=== PATIENT | male | born 1955 | race Caucasian/White ===

== ENCOUNTER → 2019-08-11 | Outpatient (CLI) | payer OTHER | END | disposition home or self-care (01) | LOC: LABPAT 11:14 | PROVIDERS: ATTEND Orthopaedic Surgery | DX: Z01.812 Encounter for preprocedural laboratory examination (principal) | CPT/HCPCS: 87070 ==

== ENCOUNTER 2019-10-05 09:30 | Day surgery (SDC) | payer OTHER ==
[2019-09-30 15:21] VITALS: BMI 43.7
--- NOTE | 2019-10-04 09:33 | HP ---
HISTORY AND PHYSICAL CHIEF COMPLAINT: Left knee pain. HISTORY OF PRESENT ILLNESS: The patient is a 64-year-old male who presents with progressive left knee pain secondary to osteoarthrosis worsening over the past year. He has had previous injections and tried medications with only partial temporary relief. He notes he has pain that limits his normal function and activities. PAST MEDICAL HISTORY: Significant for obesity, prostate cancer, rectal polyps, hypertension. PAST SURGICAL HISTORY: Significant for bariatric surgery, colonoscopy with polyp resection, carpal tunnel release, spinal fusion and left knee arthroscopy. CURRENT MEDICATIONS: 1. Losartan. 2. [place]. 3. Atorvastatin. 4. Aspirin. 5. Ciprofloxacin. 6. Gabapentin. 7. Protonix. ALLERGIES: He denies drug allergies. FAMILY HISTORY: Significant for heart disease. SOCIAL HISTORY: Negative for current tobacco or alcohol use. REVIEW OF SYSTEMS: Sixteen-point review of systems otherwise reviewed and is noncontributory. PHYSICAL EXAMINATION: On examination, the patient is approximately 5 feet 10 inches, 310 pounds of endomorphic habitus. HEENT exam is nonfocal. Neck is supple. He has painless passive motion of his left hip. Straight leg raise is negative. Active motion left knee -12 to 115 degrees of flexion. He has a mild effusion. He is tender about the medial joint line. Collaterals are stable, Jordyn is negative, Robinson's is equivocal. He has genu varum alignment. His distal neurovascular exam appears intact in the left lower extremity. X-rays to include weightbearing notch lateral and Merchant views of the left knee obtained in the office show severe medial compartment narrowing. IMPRESSION: 1. Left knee severe medial compartment osteoarthrosis. 2. Obesity. RECOMMENDATIONS: I talked to the patient at length regarding his condition along with treatment options. At this point he is quite symptomatic because of pain related to his osteoarthrosis despite extensive conservative measures. After thorough discussion, he opts to proceed with surgery. We will plan to proceed with left total knee arthroplasty. Risks and benefits were discussed at length in layman's terms. We will institute DVT prophylaxis postoperatively. MMODL / ARLINN: [id number] /
[~2019-10-05 09:30] MED LIST: ACETAMINOPHEN TAB 500 MG TAB PO ONE; HYDROmorphone 0.5 MG/0.5 ML SYRINGE IVP PRN; LIDOCAINE 1% 20 ML VIAL (10MG/ML) FOR IV START INTRADERMA PRN; MELOXICAM 7.5 MG TAB PO ONE; ONDANSETRON 4 MG/2 ML VIAL IVP ONE; ROPIVACAINE 246.25 MG, EPINEPHrine 0.5 MG, KETOROLAC 30 MG, cloNIDine HCL/PF 80 MCG, WA... MISCELLANE ONE; TRANEXAMIC ACID 1,000 MG in SODIUM CHLORIDE 0.9% 100 ML IVPB ONE; ceFAZolin 3 GM in SODIUM CHLORIDE 0.9% 100 ML IVPB ONE
[2019-10-05] MEDS ORDERED: fentaNYL (PF) 50 MCG/ML 2 ML AMP IV ONE (10:27)
[2019-10-05] MEDS ORDERED: MIDAZOLAM 2 MG/2 ML VIAL IV ONE (10:27)
[2019-10-05] MEDS: LACTATED RINGERS 1,000 ML IV SCH (10:34)
[2019-10-05] MEDS ORDERED: DEXAMETHASONE SOD PHOS (MDV) 100 MG/10 ML VIAL IV ONE (10:40)
--- NOTE | 2019-10-05 10:41 | P.ANPRN ---
Procedure Note - Anesthesia - Nerve Block Performed Left Adductor Canal Single Time Out Performed: Yes (1026) Date of Procedure: 10/05/19 Procedure Start Time: : Procedure Stop Time: Location of Patient: PreOp Indication: Acute Post-Operative Pain, Requested by Surgeon Specifically requested for management of pain by DrDg: Rodrigo Ravi Sedation Type: Sedate with meaningful contact maintained Preparation: Sterile Prep Position: Supine Catheter: None Needle Types: Pajunk Needle Gauge: 20 Ultrasound used to visualize needle placement: Yes Ultrasound used to observe medication spread: Yes Injectate: 0.5% Ropivacaine (see comment for volume) (30cc) Blood Aspirated: No Pain Paresthesia on Injection Noted: No Resistance on Injection: Normal Image Stored and Saved: Yes Events: Uneventful and Well Tolerated
[2019-10-05] MEDS ORDERED: PROPOFOL 10 MG/ML 20 ML VIAL IV ONE (10:50)
[2019-10-05] MEDS ORDERED: SUCCINYLCHOLINE CHLORIDE 100 MG/5 ML SYR IV ONE (10:50)
[2019-10-05] MEDS ORDERED: MIDAZOLAM 2 MG/2 ML VIAL ONE (10:50)
[2019-10-05] MEDS ORDERED: ePHEDrine SULFATE/0.9% NACL/PF 50 MG/5 ML SYRINGE IV ONE (10:50)
[2019-10-05] MEDS ORDERED: fentaNYL (PF) 50 MCG/ML 2 ML AMP ONE (10:50)
[2019-10-05] MEDS ORDERED: ceFAZolin 3,000 MG in SODIUM CHLORIDE 0.9% IRRIGATIO 3,000 ML IRRIGATION ONE (11:47)
[2019-10-05] MEDS ORDERED: LACTATED RINGERS 1,000 ML IV ONE (12:30)
[2019-10-05] MEDS ORDERED: ACETAMINOPHEN TAB 325 MG TAB PO PRN (12:52)
[2019-10-05] MEDS ORDERED: ONDANSETRON 4 MG/2 ML VIAL IVP PRN (12:52)
[2019-10-05] MEDS ORDERED: NALOXONE 0.4 MG/ML 1 ML VIAL IV PRN (12:52)
[2019-10-05] MEDS ORDERED: traMADol 50 MG TAB PO PRN (12:52)
[2019-10-05] MEDS ORDERED: HYDROmorphone 1 MG/ML 1 ML SYRINGE IVP PRN (12:52)
[2019-10-05] MEDS ORDERED: HYDROmorphone 0.5 MG/0.5 ML SYRINGE IVP PRN (12:52)
[2019-10-05] MEDS ORDERED: HYDROcodone/APAP 10-325MG 1 EACH TAB PO PRN (12:52)
[2019-10-05] MEDS ORDERED: MAGNESIUM HYDROXIDE 2,400 MG/10 ML CUP PO PRN (12:52)
--- NOTE | 2019-10-05 13:16 | P.OP ---
Date of Procedure: 10/05/19 Preoperative Diagnosis: Left knee severe tricompartmental osteoarthrosis Postoperative Diagnosis: Same Procedure(s) Performed: Left total knee arthroplastycementedposterior stabilized Implants: Depuy Attune size 8 cemented femoral component, size 7 cemented tibial component, 9 mm articular surface, 38 mm cemented patellar component. I did place a 50 mm tibial stem. This is a posterior stabilized implant. [facility] Surgeon: Mike Thacker Desk Reporter #1: Kofi Inman Estimated Blood Loss (ml): 50 Pathology: other (Bone fragments) Condition: stable Disposition: PACU Indications for Procedure: The patient is a 64-year-old male who presents with progressive left knee pain secondary to osteoarthrosis despite conservative treatment. A discussion of the risks and benefits of operative intervention versus continued conservative measures was made with patient. He opted to proceed with surgery. Operative risks to include infection, neurovascular injury, development of blood clots, component loosening, fracture, component failure, and possible need for subsequent procedures was discussed. Informed consent was obtained. Operative Findings: As below Description of Procedure: The patient was brought to the operating room, and after induction of spinal anesthesia the left lower extremity was prepped and draped in a normal fashion. The tourniquet was inflated to 270 mm marker. A longitudinal incision extending 3 finger breaths above the superior pole of patella extending to the medial aspect the tibial tubercle was then made. The skin and subcutaneous tissues were divided sharply. Electrocautery was used for hemostasis. A medial parapatellar arthrotomy was performed. The medial soft tissues to include the superficial and deep portions of the medial collateral ligament were elevated subperiosteally. The patella was everted. A portion of the retropatellar fat pad was excised sharply. The anterior cruciate ligament was sacrificed. Blunt retractors were placed. A starting hole was made in the distal femur 1 cm anterior to the posterior cruciate ligament origin. An intramedullary femoral guide was then inserted planning on 5 valgus distal cut with 9 mm distal resection. The cutting block was pinned in place. The distal cut was then made. The posterior referencing sizing guide was utilized. I felt size 8 was most appropriate. 3 of external rotation was built into the system and verified off the trans-epicondylar axis and the posterior condyles. The cutting block was pinned in place. The anterior, posterior, and chamfer cuts then made. Bone fragments were removed. The intercondylar guide was placed and the notch cut was made with a sagittal saw. The bone block was removed in one fragment. The trial component was then placed. There is good anterior to posterior and medial to lateral fit. The distal peg holes were drilled. The trial component was removed. Attention was then paid towards preparing the proximal femur. An extra medullary guide was utilized in line with the tibial shaft and second metatarsal distally. I planned on 2 mm resection from the medial compartment. The cutting block was pinned in place. The proximal tibial cut was then made. The bone was removed in one fragment. The remnants of the medial and lateral menisci were excised at the capsular junction with electrocautery. The tibia sized most appropriately at size 7. The trial femoral and tibial components were placed along with a 9 mm articular surface. I was able to obtain full flexion and extension with internal and external rotation. After several flexion and extension cycles, the tibial rotation was marked with electrocautery line with the medial one third of the tibial tubercle. Attention was then paid towards preparing the patella. A patella reamer was utilized taking stem to 14 mm of bone stock. A good flush cut was made. The patella sized most appropriately 38 mm. The peg holes were drilled. The trial components placed. I had good patellofemoral tracking with no hands technique. The trial components were then removed. The tibia was prepared in the appropriate rota tion with appropriate drill and keel punch. A 50 mm stem extension was placed on the trial. The posterior osteophytes were removed with a curved osteotome. The flexion and extension gaps were checked and felt to be symmetric at 9 mm. A trial components were then removed. The posterior soft tissues were injected with ropivacaine. The bony surfaces were prepared with pulsatile lavage and dried. The tibial component was then cemented place was fully seated. Excess cement was removed. The femoral component cemented place and was fully seated. Excess cement was removed. The trial 9 mm articular surface was placed and the knee was put in full extension. The patella component was cemented place. After the cement had sufficiently hardened, the knee was again taken through a range of motion. Again I was able to obtain full flexion and extension with varus and valgus stress. The trial 9 mm articular surface was removed and the final one inserted. This was fully seated. Care was taken to avoid any soft tissue interposition. Pulsatile lavage was again utilized. The medial parapatellar arthrotomy was closed with #2 Ethibond suture. The tourniquet was deflated with approximately 70 minutes total tourniquet time. Final hemostasis was obtained with the cautery. There was minimal bleeding therefore a deep drain was not placed. The subcutaneous tissues were reapproximated with interrupted 2-0 Vicryl sutures. The skin was reapproximated with renaldo. A sterile dressing was applied. The patient was awoken from sedation and transferred to recovery room in good condition. Blood loss was estimated at 50 mL. The second dose of IV TXA was given at the end of the case. No complications were incurred. Sponge and needle counts were correct at the end of the case. Regino JONES assisted during the major components of this case to include exposure, bone resection, implantation, and closure.
--- NOTE | 2019-10-05 13:45 | XR ---
EXAMINATION TYPE: XR knee limited LT DATE OF EXAM: 10/05/2019 CLINICAL HISTORY: Left knee pain and arthritis status post total knee replacement. TECHNIQUE: Portable AP and crosstable lateral views of the left knee are obtained immediately postop eratively. COMPARISON: None FINDINGS: Metallic hardware from total left knee arthroplasty is seen and appears satisfactory in al ignment and position. There is evidence of recent surgery with diffuse soft tissue swelling, vertica l skin renaldo, and subcutaneous emphysema noted. IMPRESSION: METALLIC HARDWARE FROM TOTAL LEFT KNEE ARTHROPLASTY IS SATISFACTORY IN ALIGNMENT.
[2019-10-05] MEDS: HYDROcodone/APAP 10-325MG 1 EACH TAB PO PRN (17:12)
[2019-10-05] MEDS ORDERED: LIDOCAINE 5% PATCH TOPICAL PRN (18:54)
[2019-10-05] MEDS: GABAPENTIN 300 MG CAP PO SCH (19:55)
[2019-10-05] MEDS: ceFAZolin 3 GM in SODIUM CHLORIDE 0.9% 100 ML IVPB SCH (19:57)
[2019-10-05] MEDS: SUCRALFATE 1 GM TAB PO SCH (19:58)
[2019-10-05] MEDS ORDERED: SENNOSIDES-DOCUSATE SODIUM 1 EACH TAB PO SCH (21:00)
[2019-10-06] MEDS: HYDROcodone/APAP 10-325MG 1 EACH TAB PO PRN ×3 (00:35→14:22)
[2019-10-06] MEDS: ceFAZolin 3 GM in SODIUM CHLORIDE 0.9% 100 ML IVPB SCH (03:15)
[2019-10-06 04:50] VITALS: RESP 18
--- NOTE | 2019-10-06 06:03 | CONS ---
CONSULTATION DATE OF SERVICE: . REASON FOR CONSULTATION: Advice regarding GERD, hypertension and other multiple medical issues requested by Dr. Thacker. HISTORY OF PRESENT ILLNESS: This 64-year-old gentleman with a past medical history of multiple medical problems including CVA, GERD, hypertension, sleep apnea, being followed by in the outpatient setting underwent left total knee arthroplasty. There is no history of any fever, rigors. No history of headache, loss of consciousness, chest pain, palpitations, hematochezia at this time. Patient also has history of bariatric surgery previously. PAST MEDICAL HISTORY: History of CVA, TIA, GERD, hypertension, sleep apnea, adenoidectomy, history of bariatric surgery, cholecystectomy. MEDICATIONS: The home medications are: 1. Lidocaine patch 1 patch daily p.r.n. 2. Carafate 1 gram p.o. t.i.d. 3. Cannabidiol extract 1 tablet p.o. daily. 4. [place] 1 tablet p.o. b.i.d. p.r.n. 5. Neurontin 300 mg p.o. b.i.d. 6. Fish oil 1 p.o. daily. 7. Ecotrin 81 mg p.o. daily. 8. Protonix 20 mg p.o. daily. 9. Cozaar 50 mg p.o. q.a.m. 10.Folic acid 0.4 mg daily. 11.Iron sulfate 325 mg p.o. daily. 12.Vitamin D3, 1000 daily. 13.Detrol 2 mg p.o. daily. 14.Voltaren 4 grams q.i.d. p.r.n. 15.Lipitor 20 mg p.o. daily. ALLERGIES: TEGADERM. FAMILY HISTORY: No history of heart disease or strokes in the family. SOCIAL HISTORY: No history of smoking. No history of alcohol intact. REVIEW OF SYSTEMS: ENT: No diminished hearing or diminished vision. CARDIOVASCULAR SYSTEM: No angina or palpitations. RESPIRATORY SYSTEM: No cough or hemoptysis. GI: As mentioned earlier. : No dysuria. NERVOUS SYSTEM: No numbness or weakness. ALLERGY/IMMUNOLOGY: No asthma or hayfever. MUSCULOSKELETAL: As mentioned earlier. HEMATOLOGY/ONCOLOGY: No history of anemia. ENDOCRINE: No history of diabetes or hypothyroidism. CONSTITUTIONAL: As mentioned earlier. DERMATOLOGY: Negative. RHEUMATOLOGY: Negative. PSYCHIATRY: As mentioned earlier. PHYSICAL EXAMINATION: The patient is alert and oriented x3. Pulse 78, blood pressure 132/67, respirations 16, temperature 98.8, pulse ox 94% on room air. HEENT: Conjunctivae normal. NECK; No jugular venous distention. CARDIOVASCULAR: S1, S2 muffled. RESPIRATORY: Breath sounds diminished at the bases. No rhonchi, no crackles. ABDOMEN: Soft, obese, nontender. LEGS: Status post left knee arthroplasty. NERVOUS SYSTEM: No focal deficit. SKIN: No ulcer, rash or bleeding. JOINTS: As mentioned earlier. LYMPHATICS: No lymphadenopathy of the neck, axillae or groin. LABS: Labs are not available. ASSESSMENT: 1. Status post left total knee joint arthroplasty. 2. Hypertension. 3. Gastroesophageal reflux disease. 4. History of cerebrovascular accident, transient ischemic attack. 5. History of sleep apnea. 6. History of prostate and colon cancer. 7. History of urinary incontinence and recurrent urinary tract infections. 8. History of adenoidectomy. 9. History of bariatric surgery. 10.History of cholecystectomy. 11.History of gastric sleeve. 12.Obesity with body mass index 44.1. RECOMMENDATIONS AND DISCUSSION: This 64-year-old gentleman presented after surgery at this time I recommend to continue the current medications. Resume the home medications. I would also recommend incentive spirometry, DVT prophylaxis. Will follow the patient closely with repeat labs. The patient is started on Xarelto. Thank you Dr. Thacker for letting us participate in the care of this patient. Also recommend to closely follow with the primary physician in the outpatient setting. MMODL / IJN: [id number] / MTDLaurie
[2019-10-06] MEDS: LACTATED RINGERS 1,000 ML IV SCH (07:25)
[2019-10-06] MEDS ORDERED: PANTOPRAZOLE 40 MG TABLET PO SCH (07:30)
[2019-10-06 07:55] LABS: Basophils % (A) 0 %; Eosinophils % (A) 1 %; HCT 30.7 % (39.0-53.0); HGB 10.2 gm/dL (13.0-17.5); Lymphocytes % (A) 13 %; MCH 28.3 pg (25.0-35.0); MCHC 33.3 g/dL (31.0-37.0); MCV 84.8 fL (80.0-100.0); Mean Platelet Volume 7.9; Monocytes # (A) 0.5 k/uL (0-1.0); Monocytes % (A) 6 %; Neutrophils # (A) 6.3 k/uL (1.3-7.7); Neutrophils % (A) 78 %; Platelet Count 197 k/uL (150-450); RBC 3.62 m/uL (4.30-5.90); RDW 14.5 % (11.5-15.5)
[2019-10-06 08:08] LABS: African American GFR (CKD) >90 (>60 ml/min/1.73 sqM); Anion Gap 5 mmol/L; Blood Urea Nitrogen 16 mg/dL (9-20); Calcium 8.8 mg/dL (8.4-10.2); Carbon Dioxide 25 mmol/L (22-30); Chloride 107 mmol/L (98-107); Glucose 98 mg/dL (74-99); Non-African American GFR(CKD) >90 (>60 ml/min/1.73 sqM); Potassium 4.4 mmol/L (3.5-5.1); Sodium 137 mmol/L (137-145)
[2019-10-06 08:21] VITALS: BP 125/77; PULSE 68; TEMP 97.5
[2019-10-06] MEDS ORDERED: FOLIC ACID 1 MG TAB PO SCH (09:00)
[2019-10-06] MEDS ORDERED: LOSARTAN 50 MG TAB PO SCH (09:00)
[2019-10-06] MEDS ORDERED: FERROUS SULFATE 325 MG TAB PO SCH (09:00)
[2019-10-06] MEDS ORDERED: ASPIRIN 81 MG PO SCH (09:00)
[2019-10-06] MEDS ORDERED: NON FORMULARY DRUG (Fish Oil/Dha/Epa [Fish Oil 1,200 Mg Fish Oil] 1 EACH) PO SCH (09:00)
[2019-10-06] MEDS ORDERED: CHOLECALCIFEROL 1,000 UNIT TAB PO SCH (09:00)
[2019-10-06] MEDS ORDERED: OXYBUTYNIN XL 5 MG TAB.ER.24 PO SCH (09:00)
[2019-10-06] MEDS ORDERED: RIVAROXABAN 10 MG TAB PO SCH (09:00)
[2019-10-06] MEDS ORDERED: ATORVASTATIN 20 MG TAB PO SCH (09:00)
[2019-10-06] MEDS: GABAPENTIN 300 MG CAP PO SCH (09:03)
[2019-10-06] MEDS: SUCRALFATE 1 GM TAB PO SCH (09:03)
--- NOTE | 2019-10-06 11:01 | P.PN ---
Subjective Progress Note Date: 10/06/19 Principal diagnosis: Status post left total knee arthroplasty Patient evaluated today at bedside, he is resting his hospital chair. He is doing very well with physical therapy at this time. His pain is controlled. Denies any chest pain, shortness of breath, fever or chills. Objective - Vital Signs Vital signs: Vital Signs Temp 97.5 F L 10/06/19 07:00 Pulse 68 10/06/19 07:00 Resp 18 10/06/19 07:00 BP 125/77 10/06/19 07:00 Pulse Ox 97 10/06/19 07:00 Intake & Output 10/05/19 10/06/19 10/06/19 18:59 06:59 18:59 Intake Total 1901 Output Total 250 650 Balance 1651 -650 Weight 139.3 kg Intake: IV 1 Output: Urine 200 650 Estimated Blood Loss 50 Other: Voiding Method Urinal Urinal Diaper Diaper # Voids 1 - Exam Left lower extremity: Incision is clean, dry, and intact. The exofin fusion tape is in good condition. There is minimal soft tissue swelling and ecchymosis surrounding the medial and lateral aspects of the incision. Calf is soft, no tenderness with palpation. Plantar flexion, dorsiflexion, EHL, FHL are intact. Sensory exam to light touch throughout the extremity is intact, dorsal pedis pulses 2+. - Labs CBC & Chem 7: 10/06/19 07:00 10/06/19 07:00 Labs: Abnormal Lab Results - Last 24 Hours (Table) 10/06/19 Range/Units 07:00 RBC 3.62 L (4.30-5.90) m/uL Hgb 10.2 L (13.0-17.5) gm/dL Hct 30.7 L (39.0-53.0) % Assessment and Plan Assessment: Postoperative day 1 status post left total knee arthroplasty Plan: Pain control, [place] 10 mg/325 mg. We'll increase dose to 1-2 every 6 hours GI and DVT prophylaxis, Eliquis 2.5mg bid for 2 weeks Wound care instructions were discussed Icing and elevating techniques discussed Home physical therapy and nursing after discharge Medical recommendations Discharge planning: Stable for discharge home today Time with Patient: Less than 30
--- NOTE | 2019-10-06 11:04 | P.DS ---
Providers Date of admission: 10/05/2019 Expected date of discharge: 10/06/19 Attending physician: Mike Thacker Consults: 10/05/19 12:52 Consult Physician Routine Consulting Provider: Tony Santos Consult Reason/Comments: medical management Do you want consulting provider notified?: Yes Primary care physician: Tony Santos MD Hospital Course: Date of admission: 10/05/2019 Date of discharge: 10/06/2019 Admission diagnosis: Status post left total knee arthroplasty Discharge diagnosis: Same Attending physician: Dr. Thacker Surgical procedures: Left total knee arthroplasty Brief history: Patient is a 64-year-old male with a history of progressive primary left knee osteoarthritis. At this point patient has failed conservative treatment measures and has opted to proceed with a elective left total knee arthroplasty. Hospital course: Details of patient's surgery can be found in operative report. Patient tolerated the procedure well and was subsequently transported to orthopedic floor. Patient's orthopeidc and medical care was provided daily. Patient had daily laboratory tests performed for evaluation of overall blood counts. Patient had daily physical therapy to include strengthening range of motion as well as education with walker ambulation. Patient had daily CPM usage as part of their physical therapy program. Patient was treated with Xarelto for their postoperative DVT prophylaxis during their inpatient stay. Patient was noted to have a relatively uneventful postoperative course. Patient reported satisfactory pain control with oral pain medications by postoperative day 0. Patient showed satisfactory progress with physical therapy. Patient moved steadily through the program and had no difficulty meeting the goals by postoperative day 1. Given patient's otherwise satisfactory course and having met physical therapy goals, plan is to discharge patient home on postoperative day 1. Discharge condition/disposition: Patient will be discharged home in stable condition. Discharge medications: Instructions are given on resumption of patient's normal daily medications per primary care recommendation, in addition patient will be prescribed [place] 10 mg/325 mg, Eliquis 2.5mg. Discharge instructions: 1. Wound care and infection precautions, keep incision dry and covered while showering, no lotions, creams, moisturizers. No soaking, tubs, pools, hottubs. Do not scrub over the incision. 2. Weight-bear as tolerated with walker / cane until follow-up. 3. Ice and elevate when necessary. Do not exceed 20 minutes per hour with ice pack. 4. Utilize compression sleeve until seen at first follow up appointment. 5. Visiting nursing care. 6. Home physical therapy [including home CPM]. 7. Pain meds and anticoagulants per prescription. 8. Pain medication has potential to cause constipation. Increase oral fluid and fiber intake. Contact primary care provider if you have not had a bowel movement within 48 hours after discharge 9. No anti-inflammatory medication until discussed at first post operative visit, this including Motrin, Aleve, Mobic, Diclofenac. 10. Follow up in office at 2 weeks postop with Regino Inman PA-C 11. Follow up with your primary care doctor 7-10 days after discharge. 12. Contact [facility] with any questions, . Procedures: Left total knee arthroplasty Patient Condition at Discharge: Good Plan - Discharge Summary Discharge Rx Participant: Yes New Discharge Prescriptions: New Apixaban [Eliquis] 2.5 mg PO BID #60 tab Hydrocodone/Acetaminophen [[place] 10-325] 1 - 2 each PO Q6H PRN #56 tab PRN Reason: Pain No Action Tolterodine [Detrol] 2 mg PO DAILY Diclofenac Sodium Gel [Voltaren Gel] 4 gm TOPICAL QID PRN PRN Reason: Pain Atorvastatin [Lipitor] 20 mg PO DAILY Lidocaine 5% Patch [Lidoderm] 1 patch TOPICAL DAILY PRN PRN Reason: Pain Folic Acid 0.4 mg PO DAILY Cholecalciferol [Vitamin D3 (25 Mcg = 1000 Iu)] 1,000 unit PO DAILY Ferrous Sulfate [Feosol] 325 mg PO DAILY Sucralfate [Carafate] 1 gm PO TID Pantoprazole Sodium [Protonix] 20 mg PO DAILY Losartan [Cozaar] 50 mg PO QAM HYDROcodone/APAP 10-325MG [[place] 10-325] 1 tab PO BID PRN PRN Reason: Pain Gabapentin [Neurontin] 300 mg PO BID Fish Oil/Dha/Epa [Fish Oil 1,200 mg Fish Oil] 1 each PO DAILY Aspirin [Adult Low Dose Aspirin EC] 81 mg PO DAILY Cannabidiol (Cbd) Extract [Epidiolex] 1 tab PO DAILY Discharge Medication List Aspirin [Adult Low Dose Aspirin EC] 81 mg PO DAILY 09/30/19 [History] Atorvastatin [Lipitor] 20 mg PO DAILY 09/30/19 [History] Cannabidiol (Cbd) Extract [Epidiolex] 1 tab PO DAILY 09/30/19 [History] Cholecalciferol [Vitamin D3 (25 Mcg = 1000 Iu)] 1,000 unit PO DAILY 09/30/19 [History] Diclofenac Sodium Gel [Voltaren Gel] 4 gm TOPICAL QID PRN 09/30/19 [History] Ferrous Sulfate [Feosol] 325 mg PO DAILY 09/30/19 [History] Fish Oil/Dha/Epa [Fish Oil 1,200 mg Fish Oil] 1 each PO DAILY 09/30/19 [History] Folic Acid 0.4 mg PO DAILY 09/30/19 [History] Gabapentin [Neurontin] 300 mg PO BID 09/30/19 [History] HYDROcodone/APAP 10-325MG [[place] 10-325] 1 tab PO BID PRN 09/30/19 [History] Lidocaine 5% Patch [Lidoderm] 1 patch TOPICAL DAILY PRN 09/30/19 [History] Losartan [Cozaar] 50 mg PO QAM 09/30/19 [History] Pantoprazole Sodium [Protonix] 20 mg PO DAILY 09/30/19 [History] Sucralfate [Carafate] 1 gm PO TID 09/30/19 [History] Tolterodine [Detrol] 2 mg PO DAILY 09/30/19 [History] Apixaban [Eliquis] 2.5 mg PO BID #60 tab 10/06/19 [Rx] Hydrocodone/Acetaminophen [[place] 10-325] 1 - 2 each PO Q6H PRN #56 tab 10/06/19 [Rx] Follow up Appointment(s)/Referral(s): Tony Santos MD [Primary Care Provider] - 1 Week Kofi Inman PAC [PHYSICIAN SOFTWARE INTEGRATION DEVELOPER] - 10/20/19 2:50 pm [facility], [REFERRING] - Activity/Diet/Wound Care/Special Instructions: Orthopedic Discharge Instructions: 1. Wound care and infection precautions, keep incision dry and covered while showering, no lotions, creams, moisturizers. No soaking, pools, hot tubs. Do not scrub over incision. 2. Weight-bear as tolerated with walker / cane until follow-up. 3. Ice and elevate when necessary. Do not exceed 20 minutes per hour with ice pack. 4. Utilize compression sleeve until seen at first follow up appointment. 5. Pain meds and anticoagulants per prescription. 6. Pain medication has potential to cause constipation. Increase oral fluid and fiber intake. Contact primary care provider if you have not had a bowel movement within 48 hours after discharge. 7. No anti-inflammatory medication until discussed at first post operative visit, this including Motrin, Aleve, Mobic, Diclofenac 8. Follow up in office at 2 weeks postop with Regino Inman PA-C 9. Follow up with your primary care doctor 7-10 days after discharge. 10. Contact [facility] with any questions, . Discharge Disposition: HOME WITH HOME HEALTH SERVICES
--- NOTE | 2019-10-06 16:40 | PN ---
PROGRESS NOTE DATE OF SERVICE: 10/06/2019 This 64-year-old gentleman who was admitted after left total knee arthroplasty is improving significantly. No chest pain. No palpitations. No fever. PHYSICAL EXAMINATION: Alert and oriented x3. Pulse is 68, blood pressure 125/77, respiration 18, temperature 97.5, pulse ox 97% on room air. HEENT: Conjunctivae normal. NECK: No jugular venous distention. CARDIOVASCULAR SYSTEM: S1, S2 muffled. RESPIRATORY SYSTEM: Breath sounds diminished at the bases. No rhonchi. No crackles. ABDOMEN: Soft, non-tender. LEGS: No edema. No swelling. NERVOUS SYSTEM: No focal deficit. LABS: Hemoglobin 10.2. ASSESSMENT: 1. Status post left total knee arthroplasty. 2. Hypertension. 3. Gastroesophageal reflux disease. 4. History of cerebrovascular accident, transient ischemic attack. 5. History of sleep apnea. 6. History of prostate and colon cancer. 7. Urinary incontinence with recurrent urinary tract infection. 8. History of adenoidectomy. 9. History of bariatric surgery. 10.History of cholecystectomy. 11.History of gastric sleeve. 12.Obesity with body mass index of 44.1. RECOMMENDATIONS AND DISCUSSION: I recommend to continue current medications, continue with the monitoring, symptomatic treatment. Otherwise at this time resume the home medications. DVT prophylaxis. Rest of the recommendations per Dr. Thacker. Further recommendations to follow. MMODL / IJN: [id number] /
== END 2019-10-06 14:36 | disposition home health service (06) ==
LOC: OR 09:30 → 4SSUR 13:16 → OR 10-06 14:36
PROVIDERS: ATTEND Orthopaedic Surgery
DX: M17.12 Unilateral primary osteoarthritis, left knee (principal); I10 Essential (primary) hypertension; K21.9 Gastro-esophageal reflux disease without esophagitis; E66.9 Obesity, unspecified; I69.351 Hemiplegia and hemiparesis following cerebral infarction affecting right dominant side; I65.23 Occlusion and stenosis of bilateral carotid arteries; N39.0 Urinary tract infection, site not specified; G47.30 Sleep apnea, unspecified; E78.5 Hyperlipidemia, unspecified; G89.29 Other chronic pain; Z85.038 Personal history of other malignant neoplasm of large intestine; Z87.440 Personal history of urinary (tract) infections; Z85.46 Personal history of malignant neoplasm of prostate; Z90.89 Acquired absence of other organs; Z98.84 Bariatric surgery status; Z90.49 Acquired absence of other specified parts of digestive tract; Z68.41 Body mass index [BMI] 40.0-44.9, adult; Z79.899 Other long term (current) drug therapy; Z79.82 Long term (current) use of aspirin; Z79.01 Long term (current) use of anticoagulants; Z88.8 Allergy status to other drugs, medicaments and biological substances; Z99.89 Dependence on other enabling machines and devices
CPT/HCPCS: 27447; 97161; 64447; 76942; 80048; 85025; 88300; 73560; C1713; C1776; J2250; J0171; J0690 ×3; J2405; J3010; J1885; J1100; J2795; J0330; J2704; J0735; 64448